=== PATIENT | female | born 1945 | race Caucasian/White ===

== ENCOUNTER 2016-02-22 06:59 | Outpatient (RCR) | payer MEDICARE, MEDICAID ==
[~2016-02-22] VITALS: Ht 154.9 cm; Wt 55.8 kg
[2016-02-22] MEDS ORDERED: NS 550ML IV ONE (07:00)
[2016-02-22] MEDS ORDERED: Methohexital Sodium Syr 100mg/10ml IVP ONE (07:00)
[2016-02-22] MEDS ORDERED: Diazepam 10mg/2ml Inj ONE (07:00)
[2016-02-22] MEDS ORDERED: Succinylcholine 20mg/ml 10ml vial ONE (07:00)
== END 2016-03-20 | disposition home or self-care (01) ==
LOC: ECT 06:59
DX: F31.4 Bipolar disorder, current episode depressed, severe, without psychotic features (principal); Z90.710 Acquired absence of both cervix and uterus; H35.30 Unspecified macular degeneration; E03.9 Hypothyroidism, unspecified
CPT/HCPCS: 90870; J0330; J3360; J7040

== ENCOUNTER 2016-04-02 05:56 | Outpatient (RCR) | payer MEDICARE, MEDICAID ==
[~2016-04-02] VITALS: Ht 154.9 cm; Wt 55.8 kg
[2016-04-02] MEDS ORDERED: NS 550ML IV ONE (05:57)
[2016-04-02] MEDS ORDERED: Methohexital Sodium Syr 100mg/10ml IVP ONE (05:57)
[2016-04-02] MEDS ORDERED: Succinylcholine 20mg/ml 10ml vial ONE ×2 (05:57)
[2016-04-02] MEDS ORDERED: Diazepam 10mg/2ml Inj ONE ×2 (05:57)
[2016-04-02] MEDS ORDERED: Atropine Sulfate 0.4mg/ml inj IVP PRN (20:00)
== END 2016-04-17 | disposition home or self-care (01) ==
LOC: ECT 05:56
DX: F31.4 Bipolar disorder, current episode depressed, severe, without psychotic features (principal)
CPT/HCPCS: 90870; J0330; J3360; J7040

== ENCOUNTER 2016-04-25 08:58 | Outpatient (RCR) | payer MEDICARE ==
[~2016-04-25] VITALS: Ht 154.9 cm; Wt 55.8 kg
[2016-04-25] MEDS ORDERED: Succinylcholine 20mg/ml 10ml vial ONE (08:59)
[2016-04-25] MEDS ORDERED: Methohexital Sodium Syr 100mg/10ml IVP ONE (08:59)
[2016-04-25] MEDS ORDERED: Diazepam 10mg/2ml Inj ONE (08:59)
[2016-04-25] MEDS ORDERED: NS 550ML IV ONE (08:59)
[2016-04-25] MEDS ORDERED: Atropine Sulfate 0.4mg/ml inj IVP PRN (12:09)
== END 2016-05-18 | disposition home or self-care (01) ==
LOC: ECT 08:58
DX: F31.4 Bipolar disorder, current episode depressed, severe, without psychotic features (principal)
CPT/HCPCS: 90870; J0330; J3360; J7040

== ENCOUNTER 2016-05-21 07:22 | Outpatient (RCR) | payer MEDICARE ==
[~2016-05-21] VITALS: Ht 154.9 cm; Wt 55.8 kg
[2016-05-21] MEDS ORDERED: Methohexital Sodium 500mg Vial IVP ONE (07:23)
[2016-05-21] MEDS ORDERED: Methohexital Sodium Syr 100mg/10ml IVP ONE (07:23)
[2016-05-21] MEDS ORDERED: Diazepam 10mg/2ml Inj ONE ×2 (07:23)
[2016-05-21] MEDS ORDERED: NS 550ML IV ONE ×2 (07:23)
[2016-05-21] MEDS ORDERED: Succinylcholine 20mg/ml 10ml vial ONE ×2 (07:23)
[2016-06-11] MEDS ORDERED: Methohexital Sodium Syr 100mg/10ml IVP ONE (06:00)
[2016-06-11] MEDS ORDERED: Atropine Sulfate 0.4mg/ml inj IVP PRN (10:48)
== END 2016-06-17 | disposition home or self-care (01) ==
LOC: ECT 07:22
DX: F31.4 Bipolar disorder, current episode depressed, severe, without psychotic features (principal)
CPT/HCPCS: 90870; J0330; J3360; J7040; J3490

== ENCOUNTER 2016-07-09 06:16 | Outpatient (RCR) | payer MEDICARE ==
[~2016-07-09] VITALS: Ht 154.9 cm; Wt 55.8 kg
[2016-07-09] MEDS ORDERED: Diazepam 10mg/2ml Inj ONE (06:17)
[2016-07-09] MEDS ORDERED: Succinylcholine 20mg/ml 10ml vial ONE (06:17)
[2016-07-09] MEDS ORDERED: Methohexital Sodium Syr 100mg/10ml IVP ONE (06:17)
[2016-07-09] MEDS ORDERED: NS 550ML IV ONE (06:17)
== END 2016-07-18 | disposition home or self-care (01) ==
LOC: ECT 06:16
DX: F31.4 Bipolar disorder, current episode depressed, severe, without psychotic features (principal)
CPT/HCPCS: 90870; J0330; J3360; J7040

== ENCOUNTER 2016-08-06 05:12 | Outpatient (RCR) | payer MEDICARE ==
[~2016-08-06] VITALS: Ht 154.9 cm; Wt 55.8 kg
[2016-08-06] MEDS ORDERED: Succinylcholine 20mg/ml 10ml vial ONE (05:13)
[2016-08-06] MEDS ORDERED: NS 550ML IV ONE (05:13)
[2016-08-06] MEDS ORDERED: Methohexital Sodium Syr 100mg/10ml IVP ONE (05:13)
[2016-08-06] MEDS ORDERED: Diazepam 10mg/2ml Inj ONE (05:13)
== END 2016-08-17 | disposition home or self-care (01) ==
LOC: ECT 05:12
DX: F31.4 Bipolar disorder, current episode depressed, severe, without psychotic features (principal)
CPT/HCPCS: 90870; J0330; J3360; J7040

== ENCOUNTER 2016-09-03 06:38 | Outpatient (RCR) | payer MEDICARE ==
[~2016-09-03] VITALS: Ht 154.9 cm; Wt 55.8 kg
[2016-09-03] MEDS ORDERED: NS 550ML IV ONE (06:39)
[2016-09-03] MEDS ORDERED: Methohexital Sodium Syr 100mg/10ml IVP ONE (06:39)
[2016-09-03] MEDS ORDERED: Diazepam 10mg/2ml Inj ONE (06:39)
[2016-09-03] MEDS ORDERED: Succinylcholine 20mg/ml 10ml vial ONE (06:39)
== END 2016-09-17 | disposition home or self-care (01) ==
LOC: ECT 06:38
DX: F31.4 Bipolar disorder, current episode depressed, severe, without psychotic features (principal)
CPT/HCPCS: 90870; J0330; J3360; J7040

== ENCOUNTER 2016-10-08 07:10 | Outpatient (RCR) | payer MEDICARE ==
[~2016-10-08] VITALS: Ht 154.9 cm; Wt 55.8 kg
[2016-10-08] MEDS ORDERED: Methohexital Sodium Syr 100mg/10ml IVP ONE (07:11)
[2016-10-08] MEDS ORDERED: Succinylcholine 20mg/ml 10ml vial ONE (07:11)
[2016-10-08] MEDS ORDERED: NS 550ML IV ONE (07:11)
== END 2016-10-18 | disposition home or self-care (01) ==
LOC: ECT 07:10
DX: F31.4 Bipolar disorder, current episode depressed, severe, without psychotic features (principal)
CPT/HCPCS: 90870; J0330; J3360; J7040

== ENCOUNTER 2016-11-12 07:07 | Outpatient (RCR) | payer MEDICARE, MEDICAID ==
[~2016-11-12] VITALS: Ht 154.9 cm; Wt 55.8 kg
[2016-11-12] MEDS ORDERED: NS 500ML IV ONE (07:08)
[2016-11-12] MEDS ORDERED: Succinylcholine 20mg/ml 10ml vial ONE (07:08)
[2016-11-12] MEDS ORDERED: Methohexital Sodium Syr 100mg/10ml IVP ONE (07:08)
[2016-11-12] MEDS ORDERED: Sodium Chloride 500ML 500 ML IV ONE (09:18)
== END 2016-11-17 | disposition home or self-care (01) ==
LOC: ECT 07:07
DX: F31.4 Bipolar disorder, current episode depressed, severe, without psychotic features (principal)
CPT/HCPCS: 90870; J0330; J3360; J7040

== ENCOUNTER 2016-11-26 08:28 | Outpatient (RCR) | payer MEDICARE, MEDICAID ==
[~2016-11-26] VITALS: Ht 154.9 cm; Wt 55.8 kg
[2016-11-26] MEDS ORDERED: Succinylcholine 20mg/ml 10ml vial ONE (08:29)
[2016-11-26] MEDS ORDERED: Ketorolac 60mg Inj ONE (08:29)
[2016-11-26] MEDS ORDERED: NS 500ML IV ONE (08:29)
[2016-11-26] MEDS ORDERED: Methohexital Sodium Syr 100mg/10ml IVP ONE (08:29)
[2016-11-26] MEDS ORDERED: Sodium Chloride 500ML 500 ML IV ONE (11:08)
[2016-12-17] MEDS ORDERED: Methohexital Sodium Syr 100mg/10ml IVP ONE (07:00)
[2016-12-17] MEDS ORDERED: NS 500ML IV ONE (07:00)
[2016-12-17] MEDS ORDERED: Ketorolac 60mg Inj ONE (07:00)
[2016-12-17] MEDS ORDERED: Succinylcholine 20mg/ml 10ml vial ONE (07:00)
[2016-12-17 09:05] VITALS: BP 146/75
[2016-12-17] MEDS ORDERED: Sodium Chloride 500ML 500 ML IV ONE (09:23)
[2016-12-17 09:25] VITALS: BP 115/53
[2016-12-17 09:30] VITALS: BP 128/58
[2016-12-17 09:35] VITALS: BP 125/61
[2016-12-17 09:40] VITALS: BP 127/56
== END 2016-12-18 | disposition home or self-care (01) ==
LOC: ECT 08:28
DX: F31.4 Bipolar disorder, current episode depressed, severe, without psychotic features (principal)
CPT/HCPCS: 90870; J0330; J3360; J7040

== ENCOUNTER 2017-01-07 06:57 | Outpatient (RCR) | payer MEDICARE, MEDICAID ==
[~2017-01-07] VITALS: Ht 30.5 cm; Wt 0.5 kg
[2017-01-07] MEDS ORDERED: Succinylcholine 20mg/ml 10ml vial ONE (06:58)
[2017-01-07] MEDS ORDERED: Methohexital Sodium Syr 100mg/10ml IVP ONE (06:58)
[2017-01-07] MEDS ORDERED: Ketorolac 60mg Inj ONE (06:58)
[2017-01-07] MEDS ORDERED: NS 500ML ONE (06:58)
[2017-01-07 08:23] VITALS: BP 141/75
[2017-01-07] MEDS ORDERED: Sodium Chloride 500ML 500 ML IV ONE (08:44)
[2017-01-07 08:45] VITALS: BP 111/59
[2017-01-07 08:50] VITALS: BP 114/56
[2017-01-07 08:55] VITALS: BP 118/56
[2017-01-07 09:00] VITALS: BP 115/58
== END 2017-01-17 | disposition home or self-care (01) ==
LOC: ECT 06:57
DX: F31.4 Bipolar disorder, current episode depressed, severe, without psychotic features (principal)
CPT/HCPCS: 90870; J0330; J3360; J7040

== ENCOUNTER 2017-01-28 08:45 | Outpatient (RCR) | payer MEDICARE, BC ==
[~2017-01-28] VITALS: Ht 154.9 cm; Wt 55.8 kg
[2017-01-28] MEDS ORDERED: Methohexital Sodium Syr 100mg/10ml IVP ONE (08:46)
[2017-01-28] MEDS ORDERED: Succinylcholine 20mg/ml 10ml vial ONE (08:46)
[2017-01-28] MEDS ORDERED: NS 500ML ONE (08:46)
[2017-01-28] MEDS ORDERED: Ketorolac 60mg Inj ONE (08:46)
[2017-01-28 09:26] VITALS: BP 146/77
[2017-01-28] MEDS ORDERED: Sodium Chloride 500ML 500 ML IV ONE (09:56)
[2017-01-28 10:00] VITALS: BP_SYST 117; BP_DIAS 61; BP_DIAS 67
[2017-01-28 10:05] VITALS: BP 121/57
[2017-01-28 10:10] VITALS: BP 123/55
[2017-01-28 10:15] VITALS: BP 122/58
== END 2017-02-17 | disposition home or self-care (01) ==
LOC: ECT 08:45
DX: F31.4 Bipolar disorder, current episode depressed, severe, without psychotic features (principal)
CPT/HCPCS: 90870; J0330; J3360; J7040

== ENCOUNTER 2017-02-20 06:59 | Outpatient (RCR) | payer MEDICARE, MEDICAID ==
[~2017-02-20] VITALS: Ht 154.9 cm; Wt 55.8 kg
[2017-02-20] MEDS ORDERED: Succinylcholine 20mg/ml 10ml vial ONE (07:00)
[2017-02-20] MEDS ORDERED: Ketorolac 60mg Inj ONE (07:00)
[2017-02-20] MEDS ORDERED: NS 500ML ONE (07:00)
[2017-02-20] MEDS ORDERED: Methohexital Sodium Syr 100mg/10ml IVP ONE (07:00)
[2017-02-20 09:05] VITALS: BP 140/76
[2017-02-20] MEDS ORDERED: Sodium Chloride 500ML 500 ML IV ONE (09:23)
[2017-02-20 09:25] VITALS: BP 127/54
[2017-02-20 09:30] VITALS: BP 124/63
[2017-02-20 09:35] VITALS: BP 146/79
[2017-02-20 09:40] VITALS: BP 138/65
[2017-03-18] MEDS ORDERED: Succinylcholine 20mg/ml 10ml vial ONE (06:00)
[2017-03-18] MEDS ORDERED: Methohexital Sodium Syr 100mg/10ml IVP ONE (06:00)
[2017-03-18] MEDS ORDERED: Ketorolac 60mg Inj ONE (06:00)
== END 2017-03-20 | disposition home or self-care (01) ==
LOC: ECT 06:59
DX: F31.4 Bipolar disorder, current episode depressed, severe, without psychotic features (principal); E03.9 Hypothyroidism, unspecified; Z90.710 Acquired absence of both cervix and uterus; H35.30 Unspecified macular degeneration
CPT/HCPCS: 90870; J0330; J3360; J7040

== ENCOUNTER 2017-04-15 06:08 | Outpatient (RCR) | payer MEDICARE ==
[~2017-04-15] VITALS: Ht 30.5 cm; Wt 0.5 kg
[2017-04-15] MEDS ORDERED: Ketorolac 60mg Inj ONE (06:09)
[2017-04-15] MEDS ORDERED: NS 500ML ONE (06:09)
[2017-04-15] MEDS ORDERED: Succinylcholine 20mg/ml 10ml vial ONE (06:09)
[2017-04-15] MEDS ORDERED: Methohexital Sodium Syr 100mg/10ml IVP ONE (06:09)
[2017-04-15 08:18] VITALS: BP 149/78
[2017-04-15] MEDS ORDERED: Sodium Chloride 500ML 500 ML IV ONE (08:33)
[2017-04-15] MEDS ORDERED: Atropine Sulfate 0.4mg/ml inj IVP PRN (08:33)
[2017-04-15 08:35] VITALS: BP 118/58
[2017-04-15 08:40] VITALS: BP 118/55
[2017-04-15 08:45] VITALS: BP 127/57
[2017-04-15 08:50] VITALS: BP 133/60
== END 2017-04-17 | disposition home or self-care (01) ==
LOC: ECT 06:08
DX: F31.4 Bipolar disorder, current episode depressed, severe, without psychotic features (principal); E03.9 Hypothyroidism, unspecified; Z90.710 Acquired absence of both cervix and uterus; H35.30 Unspecified macular degeneration
CPT/HCPCS: 90870; J0330; J3360; J7040

== ENCOUNTER 2017-05-13 05:37 | Outpatient (RCR) | payer MEDICARE ==
[~2017-05-13] VITALS: Ht 154.9 cm; Wt 55.8 kg
[2017-05-13] MEDS ORDERED: NS 500ML ONE (05:38)
[2017-05-13] MEDS ORDERED: Ketorolac 60mg Inj ONE (05:38)
[2017-05-13] MEDS ORDERED: Methohexital Sodium Syr 100mg/10ml IVP ONE (05:38)
[2017-05-13] MEDS ORDERED: Succinylcholine 20mg/ml 10ml vial ONE (05:38)
[2017-05-13 08:48] VITALS: BP 139/87
[2017-05-13] MEDS ORDERED: Sodium Chloride 500ML 500 ML IV ONE (09:18)
[2017-05-13] MEDS ORDERED: Atropine Sulfate 0.4mg/ml inj IVP PRN (09:18)
[2017-05-13 09:20] VITALS: BP 112/54
[2017-05-13 09:25] VITALS: BP 117/55
[2017-05-13 09:30] VITALS: BP 125/60
[2017-05-13 09:35] VITALS: BP 137/71
== END 2017-05-18 | disposition home or self-care (01) ==
LOC: ECT 05:37
DX: F31.4 Bipolar disorder, current episode depressed, severe, without psychotic features (principal)
CPT/HCPCS: 90870; J0330; J3360; J7040

== ENCOUNTER 2017-06-10 08:01 | Outpatient (RCR) | payer MEDICARE ==
[~2017-06-10] VITALS: Ht 33 cm; Wt 0.5 kg
[2017-06-10] MEDS ORDERED: Methohexital Sodium Syr 100mg/10ml IVP ONE (08:02)
[2017-06-10] MEDS ORDERED: NS 500ML ONE (08:02)
[2017-06-10] MEDS ORDERED: Succinylcholine 20mg/ml 10ml vial ONE (08:02)
[2017-06-10] MEDS ORDERED: Ketorolac 60mg Inj ONE (08:02)
[2017-06-10 08:31] VITALS: BP 161/95
[2017-06-10] MEDS ORDERED: Sodium Chloride 500ML 500 ML IV ONE (08:49)
[2017-06-10 08:50] VITALS: BP 128/57
[2017-06-10 08:55] VITALS: BP 127/57
[2017-06-10 09:00] VITALS: BP 132/59
[2017-06-10 09:05] VITALS: BP 145/69
== END 2017-06-17 | disposition home or self-care (01) ==
LOC: ECT 08:01
DX: F31.4 Bipolar disorder, current episode depressed, severe, without psychotic features (principal)
CPT/HCPCS: 90870; J0330; J3360; J7040

== ENCOUNTER 2017-06-21 08:09 | Outpatient (RCR) | payer MEDICARE ==
[~2017-06-21] VITALS: Ht 154.9 cm; Wt 55.8 kg
[2017-06-21] MEDS ORDERED: Methohexital Sodium Syr 100mg/10ml IVP ONE (08:10)
[2017-06-21] MEDS ORDERED: Succinylcholine 20mg/ml 10ml vial ONE (08:10)
[2017-06-21] MEDS ORDERED: Ketorolac 60mg Inj ONE (08:10)
[2017-06-21] MEDS ORDERED: NS 500ML ONE (08:10)
[2017-06-21 10:12] VITALS: BP 157/86
[2017-06-21 10:35] VITALS: BP 125/64
[2017-06-21] MEDS ORDERED: Sodium Chloride 500ML 500 ML IV ONE (10:35)
[2017-06-21 10:40] VITALS: BP 125/60
[2017-06-21 10:45] VITALS: BP 124/60
[2017-06-21 10:50] VITALS: BP 132/60
[2017-07-08] MEDS ORDERED: Ketorolac 60mg Inj ONE (07:00)
[2017-07-08] MEDS ORDERED: Methohexital Sodium Syr 100mg/10ml IVP ONE (07:00)
[2017-07-08] MEDS ORDERED: NS 500ML ONE (07:00)
[2017-07-08] MEDS ORDERED: Succinylcholine 20mg/ml 10ml vial ONE (07:00)
[2017-07-08 08:00] VITALS: BP 145/78
[2017-07-08] MEDS ORDERED: Sodium Chloride 500ML 500 ML IV ONE (08:27)
[2017-07-08 08:30] VITALS: BP 125/53
[2017-07-08 08:35] VITALS: BP 114/54
[2017-07-08 08:40] VITALS: BP 114/56
[2017-07-08 08:45] VITALS: BP 122/54
[2017-07-08 09:08] VITALS: BP 129/64
== END 2017-07-18 | disposition home or self-care (01) ==
LOC: ECT 08:09
DX: F31.4 Bipolar disorder, current episode depressed, severe, without psychotic features (principal)
CPT/HCPCS: 90870; J0330; J3360; J7040

== ENCOUNTER 2017-08-14 06:06 | Outpatient (RCR) | payer MEDICARE ==
[~2017-08-14] VITALS: Ht 154.9 cm; Wt 55.8 kg
[2017-08-14] MEDS ORDERED: Ketorolac 60mg Inj ONE (06:07)
[2017-08-14] MEDS ORDERED: NS 500ML ONE (06:07)
[2017-08-14] MEDS ORDERED: Methohexital Sodium Syr 100mg/10ml IVP ONE (06:07)
[2017-08-14] MEDS ORDERED: Succinylcholine 20mg/ml 10ml vial ONE (06:07)
[2017-08-14 08:23] VITALS: BP 147/88
[2017-08-14 08:45] VITALS: BP 125/61
[2017-08-14] MEDS ORDERED: Sodium Chloride 500ML 500 ML IV ONE (08:45)
[2017-08-14 08:50] VITALS: BP 128/61
[2017-08-14 08:55] VITALS: BP 129/64
[2017-08-14 09:00] VITALS: BP 129/61
== END 2017-08-17 | disposition home or self-care (01) ==
LOC: ECT 06:06
DX: F31.4 Bipolar disorder, current episode depressed, severe, without psychotic features (principal)
CPT/HCPCS: 90870; J0330; J3360; J7040

== ENCOUNTER 2017-09-16 05:41 | Outpatient (RCR) | payer MEDICARE ==
[~2017-09-16] VITALS: Ht 30.5 cm; Wt 0.5 kg
[2017-09-16] MEDS ORDERED: Ketorolac 60mg Inj ONE (05:42)
[2017-09-16] MEDS ORDERED: Succinylcholine 20mg/ml 10ml vial ONE (05:42)
[2017-09-16] MEDS ORDERED: Methohexital Sodium Syr 100mg/10ml IVP ONE (05:42)
[2017-09-16] MEDS ORDERED: NS 500ML ONE (05:42)
[2017-09-16 07:45] VITALS: BP 156/83
[2017-09-16] MEDS ORDERED: Sodium Chloride 500ML 500 ML IV ONE (08:03)
[2017-09-16 08:05] VITALS: BP 130/60
[2017-09-16 08:10] VITALS: BP 123/54
[2017-09-16 08:15] VITALS: BP 120/49
[2017-09-16 08:20] VITALS: BP 122/53
== END 2017-09-17 | disposition home or self-care (01) ==
LOC: ECT 05:41
DX: F31.4 Bipolar disorder, current episode depressed, severe, without psychotic features (principal)
CPT/HCPCS: 90870; J0330; J3360; J7040

== ENCOUNTER 2017-10-14 04:41 | Outpatient (RCR) | payer MEDICARE ==
[~2017-10-14] VITALS: Ht 154.9 cm; Wt 55.8 kg
[2017-10-14] MEDS ORDERED: Ketorolac 60mg Inj IM ONE (04:42)
[2017-10-14] MEDS ORDERED: Succinylcholine 20mg/ml 10ml vial ONE (04:42)
[2017-10-14] MEDS ORDERED: NS 500ML ONE (04:42)
[2017-10-14] MEDS ORDERED: Methohexital Sodium Syr 100mg/10ml IVP ONE (04:42)
[2017-10-14 08:23] VITALS: BP 164/70
[2017-10-14] MEDS ORDERED: Sodium Chloride 500ML 500 ML IV ONE (08:39)
[2017-10-14 08:40] VITALS: BP 120/61
[2017-10-14 08:45] VITALS: BP 119/56
[2017-10-14 08:50] VITALS: BP 120/55
[2017-10-14 08:55] VITALS: BP 124/55
== END 2017-10-18 | disposition home or self-care (01) ==
LOC: ECT 04:41
DX: F31.4 Bipolar disorder, current episode depressed, severe, without psychotic features (principal); E03.9 Hypothyroidism, unspecified; J45.909 Unspecified asthma, uncomplicated
CPT/HCPCS: 90870; J0330; J3360; J7040

== ENCOUNTER 2017-11-18 04:44 | Outpatient (RCR) | payer MEDICARE ==
[~2017-11-18] VITALS: Ht 154.9 cm; Wt 55.8 kg
[2017-11-18] MEDS ORDERED: Methohexital Sodium Syr 100mg/10ml IVP ONE (04:45)
[2017-11-18] MEDS ORDERED: NS 500ML ONE (04:45)
[2017-11-18] MEDS ORDERED: Ketorolac 60mg Inj IM ONE (04:45)
[2017-11-18] MEDS ORDERED: Succinylcholine 20mg/ml 10ml vial ONE (04:45)
[2017-11-18 08:39] VITALS: BP 152/74
[2017-11-18] MEDS ORDERED: Sodium Chloride 500ML 500 ML IV ONE (09:01)
[2017-11-18 09:05] VITALS: BP 122/59
[2017-11-18 09:10] VITALS: BP 137/60
[2017-11-18 09:15] VITALS: BP 139/65
[2017-11-18 09:20] VITALS: BP 131/60
[2017-12-16] MEDS ORDERED: NS 500ML ONE (07:00)
[2017-12-16] MEDS ORDERED: Methohexital Sodium Syr 100mg/10ml IVP ONE (07:00)
[2017-12-16] MEDS ORDERED: Ketorolac 60mg Inj IM ONE (07:00)
[2017-12-16] MEDS ORDERED: Succinylcholine 20mg/ml 10ml vial ONE (07:00)
[2017-12-16 08:49] VITALS: BP 130/80
[2017-12-16] MEDS ORDERED: Sodium Chloride 500ML 500 ML IV ONE (09:13)
[2017-12-16] MEDS ORDERED: Atropine Sulfate 0.4mg/ml inj IVP PRN (09:13)
[2017-12-16 09:15] VITALS: BP 112/60
[2017-12-16 09:20] VITALS: BP 118/58
[2017-12-16 09:25] VITALS: BP 115/56
[2017-12-16 09:30] VITALS: BP 120/53
== END 2017-12-18 | disposition home or self-care (01) ==
LOC: ECT 04:44
DX: F31.4 Bipolar disorder, current episode depressed, severe, without psychotic features (principal)
CPT/HCPCS: 90870; J0330; J3360; J7040

== ENCOUNTER 2018-01-13 06:26 | Outpatient (RCR) | payer MEDICARE ==
[~2018-01-13] VITALS: Ht 154.9 cm; Wt 55.8 kg
[2018-01-13] MEDS ORDERED: Ketorolac 60mg Inj IM ONE (06:27)
[2018-01-13] MEDS ORDERED: NS 500ML ONE (06:27)
[2018-01-13] MEDS ORDERED: Succinylcholine 20mg/ml 10ml vial ONE (06:27)
[2018-01-13] MEDS ORDERED: Methohexital Sodium Syr 100mg/10ml IVP ONE (06:27)
[2018-01-13] MEDS ORDERED: Sodium Chloride 500ML 500 ML IV ONE (08:30)
[2018-01-13 08:34] VITALS: BP 141/80
[2018-01-13 08:55] VITALS: BP 141/80
[2018-01-13 09:00] VITALS: BP 116/61
[2018-01-13 09:05] VITALS: BP 112/81
[2018-01-13 09:10] VITALS: BP 139/75
== END 2018-01-17 | disposition home or self-care (01) ==
LOC: ECT 06:26
DX: F31.4 Bipolar disorder, current episode depressed, severe, without psychotic features (principal)
CPT/HCPCS: 90870; J0330; J3360; J7040

== ENCOUNTER 2018-02-03 07:04 | Outpatient (RCR) | payer MEDICARE ==
[~2018-02-03] VITALS: Ht 154.9 cm; Wt 55.8 kg
[2018-02-05] MEDS ORDERED: Ketorolac 60mg Inj IM ONE (07:05)
[2018-02-05] MEDS ORDERED: NS 500ML ONE (07:05)
[2018-02-05] MEDS ORDERED: Succinylcholine 20mg/ml 10ml vial ONE (07:05)
[2018-02-05] MEDS ORDERED: Methohexital Sodium Syr 100mg/10ml IVP ONE (07:05)
[2018-02-05 09:34] VITALS: BP 158/84
[2018-02-05] MEDS ORDERED: Sodium Chloride 500ML 500 ML IV ONE (09:52)
[2018-02-05 09:55] VITALS: BP 114/63
[2018-02-05 10:00] VITALS: BP 125/57
[2018-02-05 10:05] VITALS: BP 122/59
[2018-02-05 10:10] VITALS: BP 123/60
== END 2018-02-17 | disposition home or self-care (01) ==
LOC: ECT 07:04
DX: F31.4 Bipolar disorder, current episode depressed, severe, without psychotic features (principal)
CPT/HCPCS: 90870; J0330; J3360; J7040

== ENCOUNTER 2018-03-03 08:43 | Outpatient (RCR) | payer MEDICARE, MEDICAID ==
[~2018-03-03] VITALS: Ht 30.5 cm; Wt 0.5 kg
[2018-03-03] MEDS ORDERED: Methohexital Sodium Syr 100mg/10ml IVP ONE (08:44)
[2018-03-03] MEDS ORDERED: NS 500ML ONE (08:44)
[2018-03-03] MEDS ORDERED: Ketorolac 60mg Inj IM ONE (08:44)
[2018-03-03] MEDS ORDERED: Succinylcholine 20mg/ml 10ml vial ONE (08:44)
[2018-03-10 08:40] VITALS: BP_SYST 117; BP_SYST 138; BP_DIAS 57; BP_DIAS 74
[2018-03-10 08:45] VITALS: BP 113/54
[2018-03-10 08:50] VITALS: BP 112/56
[2018-03-10 08:55] VITALS: BP 127/60
== END 2018-03-20 | disposition home or self-care (01) ==
LOC: ECT 08:43
DX: F31.4 Bipolar disorder, current episode depressed, severe, without psychotic features (principal); E03.9 Hypothyroidism, unspecified; Z90.710 Acquired absence of both cervix and uterus; H35.30 Unspecified macular degeneration
CPT/HCPCS: 90870; J0330; J3360; J7040

== ENCOUNTER 2018-04-07 06:22 | Outpatient (RCR) | payer MEDICARE ==
[~2018-04-07] VITALS: Ht 30.5 cm; Wt 0.5 kg
[2018-04-14] MEDS ORDERED: Succinylcholine 20mg/ml 10ml vial ONE (06:00)
[2018-04-14] MEDS ORDERED: Ketorolac 60mg Inj IM ONE (06:00)
[2018-04-14] MEDS ORDERED: NS 500ML ONE (06:00)
[2018-04-14] MEDS ORDERED: Methohexital Sodium Syr 100mg/10ml IVP ONE (06:00)
[2018-04-14 08:30] VITALS: BP 154/86
[2018-04-14 08:50] VITALS: BP 109/52
[2018-04-14 08:55] VITALS: BP 110/53
[2018-04-14 09:00] VITALS: BP 112/53
[2018-04-14 09:05] VITALS: BP 116/62
== END 2018-04-17 | disposition home or self-care (01) ==
LOC: ECT 06:22
DX: F31.4 Bipolar disorder, current episode depressed, severe, without psychotic features (principal)
CPT/HCPCS: 90870; J0330; J3360; J7040

== ENCOUNTER 2018-05-14 06:20 | Outpatient (RCR) | payer MEDICARE ==
[~2018-05-14] VITALS: Ht 30.5 cm; Wt 0.5 kg
[2018-05-14] MEDS ORDERED: NS 500ML ONE (07:00)
[2018-05-14] MEDS ORDERED: Ketorolac 60mg Inj IM ONE (07:00)
[2018-05-14] MEDS ORDERED: Methohexital Sodium Syr 100mg/10ml IVP ONE (07:00)
[2018-05-14] MEDS ORDERED: Succinylcholine 20mg/ml 10ml vial ONE (07:00)
[2018-05-14 08:16] VITALS: BP 164/80
[2018-05-14 08:30] VITALS: BP 116/71
[2018-05-14 08:35] VITALS: BP 119/55
[2018-05-14 08:40] VITALS: BP 117/57
[2018-05-14 08:45] VITALS: BP 122/59
== END 2018-05-18 | disposition home or self-care (01) ==
LOC: ECT 06:20
DX: F31.4 Bipolar disorder, current episode depressed, severe, without psychotic features (principal)
CPT/HCPCS: 90870; J0330; J3360; J7040

== ENCOUNTER 2018-06-16 04:41 | Outpatient (RCR) | payer MEDICARE ==
[~2018-06-16] VITALS: Ht 154.9 cm; Wt 55.8 kg
[2018-06-16] MEDS ORDERED: Methohexital Sodium Syr 100mg/10ml IVP ONE (04:42)
[2018-06-16] MEDS ORDERED: NS 500ML ONE (04:42)
[2018-06-16] MEDS ORDERED: Ketorolac 30mg Inj ONE (04:42)
[2018-06-16] MEDS ORDERED: Succinylcholine 20mg/ml 10ml vial ONE (04:42)
[2018-06-16 08:28] VITALS: BP 156/87
[2018-06-16 08:46] VITALS: BP 116/53
[2018-06-16 08:51] VITALS: BP 123/65
[2018-06-16 08:56] VITALS: BP 139/62
[2018-06-16 09:01] VITALS: BP 133/70
== END 2018-06-17 | disposition home or self-care (01) ==
LOC: ECT 04:41
DX: F31.4 Bipolar disorder, current episode depressed, severe, without psychotic features (principal)
CPT/HCPCS: 90870; J0330; J1885; J3360; J7040

== ENCOUNTER 2018-07-16 04:32 | Outpatient (RCR) | payer MEDICARE ==
[~2018-07-16] VITALS: Ht 30.5 cm; Wt 0.5 kg
[2018-07-16] MEDS ORDERED: Succinylcholine 20mg/ml 10ml vial ONE (04:33)
[2018-07-16] MEDS ORDERED: Methohexital Sodium Syr 100mg/10ml IVP ONE (04:33)
[2018-07-16] MEDS ORDERED: Ketorolac 60mg Inj IM ONE (04:33)
[2018-07-16] MEDS ORDERED: NS 500ML ONE (04:33)
[2018-07-16 08:19] VITALS: BP 154/78
[2018-07-16 08:35] VITALS: BP 108/56
[2018-07-16 08:40] VITALS: BP 118/61
[2018-07-16 08:45] VITALS: BP 131/60
[2018-07-16 08:50] VITALS: BP 115/58
== END 2018-07-18 | disposition home or self-care (01) ==
LOC: ECT 04:32
DX: F31.4 Bipolar disorder, current episode depressed, severe, without psychotic features (principal)
CPT/HCPCS: 90870; J0330; J3360; J7040

== ENCOUNTER 2018-08-18 07:02 | Outpatient (RCR) | payer MEDICARE ==
[~2018-08-18] VITALS: Ht 30.5 cm; Wt 0.5 kg
[2018-08-18] MEDS ORDERED: Ketorolac 60mg Inj IM ONE (07:03)
[2018-08-18] MEDS ORDERED: Succinylcholine 20mg/ml 10ml vial ONE (07:03)
[2018-08-18] MEDS ORDERED: Methohexital Sodium Syr 100mg/10ml IVP ONE (07:03)
[2018-08-18] MEDS ORDERED: NS 500ML ONE (07:03)
[2018-08-18 07:54] VITALS: BP 161/66
[2018-08-18 08:06] VITALS: BP 116/64
[2018-08-18 08:11] VITALS: BP 117/56
[2018-08-18 08:16] VITALS: BP 117/58
[2018-08-18 08:21] VITALS: BP 124/72
[2018-09-10] MEDS ORDERED: Succinylcholine 20mg/ml 10ml vial ONE (09:00)
[2018-09-10] MEDS ORDERED: Methohexital Sodium Syr 100mg/10ml IVP ONE (09:00)
[2018-09-10] MEDS ORDERED: Ketorolac 60mg Inj IM ONE (09:00)
[2018-09-10] MEDS ORDERED: NS 500ML ONE (09:00)
[2018-09-10 10:13] VITALS: BP 162/77
[2018-09-10 10:35] VITALS: BP 160/58
[2018-09-10 10:40] VITALS: BP 126/60
[2018-09-10 10:45] VITALS: BP 120/57
[2018-09-10 10:50] VITALS: BP 119/59
== END 2018-09-17 | disposition home or self-care (01) ==
LOC: ECT 07:02
DX: F31.4 Bipolar disorder, current episode depressed, severe, without psychotic features (principal)
CPT/HCPCS: 90870; J0330; J3360; J7040

== ENCOUNTER 2018-10-13 05:11 | Outpatient (RCR) | payer MEDICARE ==
[~2018-10-13] VITALS: Ht 154.9 cm; Wt 55.8 kg
[2018-10-13] MEDS ORDERED: Ketorolac 60mg Inj IM ONE (05:12)
[2018-10-13] MEDS ORDERED: NS 500ML ONE (05:12)
[2018-10-13] MEDS ORDERED: Methohexital Sodium Syr 100mg/10ml IVP ONE (05:12)
[2018-10-13] MEDS ORDERED: Succinylcholine 20mg/ml 10ml vial ONE (05:12)
[2018-10-13 07:59] VITALS: BP 152/76
[2018-10-13] MEDS ORDERED: Atropine Sulfate 0.4mg/ml inj IVP PRN (08:29)
[2018-10-13 08:30] VITALS: BP 113/55
[2018-10-13 08:35] VITALS: BP 109/57
[2018-10-13 08:40] VITALS: BP 115/55
[2018-10-13 08:45] VITALS: BP 120/61
== END 2018-10-18 | disposition home or self-care (01) ==
LOC: ECT 05:11
DX: F31.4 Bipolar disorder, current episode depressed, severe, without psychotic features (principal)
CPT/HCPCS: 90870; J0330; J3360; J7040

== ENCOUNTER 2018-10-29 05:09 | Outpatient (RCR) | payer MEDICARE ==
[~2018-10-29] VITALS: Ht 154.9 cm; Wt 55.8 kg
[2018-10-29] MEDS ORDERED: Succinylcholine 20mg/ml 10ml vial ONE (05:10)
[2018-10-29] MEDS ORDERED: Methohexital Sodium Syr 100mg/10ml IVP ONE (05:10)
[2018-10-29] MEDS ORDERED: Ketorolac 60mg Inj IM ONE (05:10)
[2018-10-29] MEDS ORDERED: NS 500ML ONE (05:10)
[2018-10-29 08:37] VITALS: BP 153/71
[2018-10-29 08:57] VITALS: BP 119/55
[2018-10-29 09:02] VITALS: BP 124/63
[2018-10-29 09:07] VITALS: BP 132/65
[2018-10-29 09:12] VITALS: BP 153/61
== END 2018-11-17 | disposition home or self-care (01) ==
LOC: ECT 05:09
DX: F31.4 Bipolar disorder, current episode depressed, severe, without psychotic features (principal)
CPT/HCPCS: 90870; J0330; J3360; J7040

== ENCOUNTER 2018-11-24 04:44 | Outpatient (RCR) | payer MEDICARE ==
[~2018-11-24] VITALS: Ht 154.9 cm; Wt 55.8 kg
[2018-11-24] MEDS ORDERED: NS 500ML ONE (04:45)
[2018-11-24] MEDS ORDERED: Succinylcholine 20mg/ml 10ml vial ONE (04:45)
[2018-11-24] MEDS ORDERED: Ketorolac 60mg Inj IM ONE (04:45)
[2018-11-24] MEDS ORDERED: Methohexital Sodium Syr 100mg/10ml IVP ONE (04:45)
[2018-11-24 08:11] VITALS: BP 153/79
[2018-11-24 08:30] VITALS: BP 126/60
[2018-11-24 08:35] VITALS: BP 131/52
[2018-11-24 08:40] VITALS: BP 127/58
[2018-11-24 08:45] VITALS: BP 129/62
== END 2018-12-18 | disposition home or self-care (01) ==
LOC: ECT 04:44
DX: F31.4 Bipolar disorder, current episode depressed, severe, without psychotic features (principal)
CPT/HCPCS: 90870; J0330; J3360; J7040

== ENCOUNTER 2018-12-24 05:42 | Outpatient (RCR) | payer MEDICARE ==
[~2018-12-24] VITALS: Ht 154.9 cm; Wt 55.8 kg
[2018-12-24] MEDS ORDERED: Succinylcholine 20mg/ml 10ml vial ONE (05:43)
[2018-12-24] MEDS ORDERED: Ketorolac 60mg Inj IM ONE (05:43)
[2018-12-24] MEDS ORDERED: Methohexital Sodium Syr 100mg/10ml IVP ONE (05:43)
[2018-12-24] MEDS ORDERED: NS 500ML ONE (05:43)
[2018-12-24 10:14] VITALS: BP 140/72
[2018-12-24 10:30] VITALS: BP 118/55
[2018-12-24 10:35] VITALS: BP 117/64
[2018-12-24 10:40] VITALS: BP 120/64
[2018-12-24 10:45] VITALS: BP 120/59
[2019-01-14 08:21] VITALS: BP 150/74
[2019-01-14 08:35] VITALS: BP 117/51
[2019-01-14 08:40] VITALS: BP 121/56
[2019-01-14 08:45] VITALS: BP 119/49
[2019-01-14 08:50] VITALS: BP 123/40
== END 2019-01-17 | disposition home or self-care (01) ==
LOC: ECT 05:42
DX: F31.4 Bipolar disorder, current episode depressed, severe, without psychotic features (principal)
CPT/HCPCS: 90870; J0330; J3360; J7040

== ENCOUNTER 2019-02-16 05:14 | Outpatient (RCR) | payer MEDICARE ==
[~2019-02-16] VITALS: Ht 30.5 cm; Wt 0.5 kg
[2019-02-16] MEDS ORDERED: Methohexital Sodium Syr 100mg/10ml IVP ONE (05:15)
[2019-02-16] MEDS ORDERED: Succinylcholine 20mg/ml 10ml vial ONE (05:15)
[2019-02-16] MEDS ORDERED: NS 500ML ONE (05:15)
[2019-02-16] MEDS ORDERED: Ketorolac 60mg Inj IM ONE (05:15)
[2019-02-16 07:46] VITALS: BP 165/85
[2019-02-16 08:01] VITALS: BP 115/60
[2019-02-16 08:06] VITALS: BP 112/55
[2019-02-16 08:11] VITALS: BP 118/54
[2019-02-16 08:16] VITALS: BP 122/57
== END 2019-02-17 | disposition home or self-care (01) ==
LOC: ECT 05:14
DX: F31.4 Bipolar disorder, current episode depressed, severe, without psychotic features (principal)
CPT/HCPCS: 90870

== ENCOUNTER 2019-04-08 05:06 | Outpatient (RCR) | payer MEDICARE ==
[~2019-04-08] VITALS: Ht 154.9 cm; Wt 55.8 kg
[2019-04-08] MEDS ORDERED: Methohexital Sodium Syr 100mg/10ml IVP ONE (06:00)
[2019-04-08] MEDS ORDERED: Succinylcholine 20mg/ml 10ml vial ONE (06:00)
[2019-04-08] MEDS ORDERED: NS 500ML ONE (06:00)
[2019-04-08] MEDS ORDERED: Ketorolac 30mg Inj ONE (06:00)
[2019-04-08 08:34] VITALS: BP 177/87
[2019-04-08 08:54] VITALS: BP 131/58
[2019-04-08 08:59] VITALS: BP 141/76
[2019-04-08 09:04] VITALS: BP 135/57
[2019-04-08 09:09] VITALS: BP 129/60
== END 2019-04-18 | disposition home or self-care (01) ==
LOC: ECT 05:06
DX: F31.4 Bipolar disorder, current episode depressed, severe, without psychotic features (principal)
CPT/HCPCS: 90870; J0330; J1885; J3360; J7040

== ENCOUNTER 2019-04-22 08:28 | Outpatient (RCR) | payer MEDICARE ==
[~2019-04-22] VITALS: Ht 154.9 cm; Wt 55.8 kg
[~2019-04-22 08:28] MED LIST: Ketorolac 30mg Inj ONE; Methohexital Sodium Syr 100mg/10ml IVP ONE; NS 500ML ONE; Succinylcholine 20mg/ml 10ml vial ONE
[2019-04-22 09:40] VITALS: BP 157/78
[2019-04-22 10:00] VITALS: BP 117/53
[2019-04-22 10:05] VITALS: BP 114/52
[2019-04-22 10:10] VITALS: BP 113/51
[2019-04-22 10:15] VITALS: BP 114/50
[2019-05-04 08:40] VITALS: BP 144/74
[2019-05-04 08:58] VITALS: BP 140/54
[2019-05-04] MEDS ORDERED: Ketorolac 60mg Inj IM ONE (09:00)
[2019-05-04] MEDS ORDERED: NS 500ML ONE (09:00)
[2019-05-04] MEDS ORDERED: Methohexital Sodium Syr 100mg/10ml IVP ONE (09:00)
[2019-05-04] MEDS ORDERED: Succinylcholine 20mg/ml 10ml vial ONE (09:00)
[2019-05-04 09:03] VITALS: BP 131/59
[2019-05-04 09:08] VITALS: BP 131/53
[2019-05-04 09:13] VITALS: BP 123/50
== END 2019-05-19 | disposition home or self-care (01) ==
LOC: ECT 08:28
DX: F31.4 Bipolar disorder, current episode depressed, severe, without psychotic features (principal)
CPT/HCPCS: 90870; J0330; J1885; J3360; J7040

== ENCOUNTER 2019-06-01 05:35 | Outpatient (RCR) | payer MEDICARE ==
[~2019-06-01] VITALS: Ht 154.9 cm; Wt 55.8 kg
[2019-06-01] MEDS ORDERED: Succinylcholine 20mg/ml 10ml vial ONE (05:36)
[2019-06-01] MEDS ORDERED: NS 500ML ONE (05:36)
[2019-06-01] MEDS ORDERED: Methohexital Sodium Syr 100mg/10ml IVP ONE (05:36)
[2019-06-01] MEDS ORDERED: Ketorolac 30mg Inj ONE (05:36)
[2019-06-01 08:17] VITALS: BP 159/81
[2019-06-01 08:34] VITALS: BP 124/58
[2019-06-01] MEDS ORDERED: Lidocaine 2% 100mg/5ml Carp IV PRN (08:34)
[2019-06-01] MEDS ORDERED: Atropine Sulfate 0.4mg/ml inj IVP PRN (08:34)
[2019-06-01 08:39] VITALS: BP 116/45
[2019-06-01 08:44] VITALS: BP 105/46
[2019-06-01 08:49] VITALS: BP 108/46
== END 2019-06-18 | disposition home or self-care (01) ==
LOC: ECT 05:35
DX: F31.4 Bipolar disorder, current episode depressed, severe, without psychotic features (principal)
CPT/HCPCS: 90870; J0330; J1885; J3360; J7040

== ENCOUNTER 2019-06-29 06:34 | Outpatient (RCR) | payer MEDICARE ==
[~2019-06-29] VITALS: Ht 154.9 cm; Wt 55.8 kg
[2019-06-29] MEDS ORDERED: Methohexital Sodium Syr 100mg/10ml IVP ONE (06:35)
[2019-06-29] MEDS ORDERED: Succinylcholine 20mg/ml 10ml vial ONE (06:35)
[2019-06-29] MEDS ORDERED: Ketorolac 60mg Inj IM ONE (06:35)
[2019-06-29] MEDS ORDERED: NS 500ML ONE (06:35)
[2019-06-29 08:19] VITALS: BP 154/81
[2019-06-29 08:34] VITALS: BP 136/62
[2019-06-29 08:39] VITALS: BP 125/57
[2019-06-29 08:44] VITALS: BP 116/53
[2019-06-29 08:49] VITALS: BP 118/54
== END 2019-07-19 | disposition home or self-care (01) ==
LOC: ECT 06:34
DX: F31.4 Bipolar disorder, current episode depressed, severe, without psychotic features (principal)
CPT/HCPCS: 90870; J0330; J3360; J7040

== ENCOUNTER 2019-07-29 05:15 | Outpatient (RCR) | payer MEDICARE ==
[~2019-07-29] VITALS: Ht 154.9 cm; Wt 55.8 kg
[2019-07-29] MEDS ORDERED: NS 500ML ONE (06:00)
[2019-07-29] MEDS ORDERED: Methohexital Sodium Syr 100mg/10ml IVP ONE (06:00)
[2019-07-29] MEDS ORDERED: Succinylcholine 20mg/ml 10ml vial ONE (06:00)
[2019-07-29] MEDS ORDERED: Ketorolac 30mg Inj ONE (06:00)
[2019-07-29 08:18] VITALS: BP 156/72
[2019-07-29] MEDS ORDERED: Lidocaine 2% 100mg/5ml Carp IV PRN (08:39)
[2019-07-29] MEDS ORDERED: Atropine Sulfate 0.4mg/ml inj IVP PRN (08:39)
[2019-07-29 08:40] VITALS: BP 102/41
[2019-07-29 08:45] VITALS: BP 100/41
[2019-07-29 08:50] VITALS: BP 95/38
[2019-07-29 08:55] VITALS: BP 99/32
== END 2019-08-18 | disposition home or self-care (01) ==
LOC: ECT 05:15
DX: F31.4 Bipolar disorder, current episode depressed, severe, without psychotic features (principal)
CPT/HCPCS: 90870; J0330; J1885; J3360; J7040

== ENCOUNTER 2019-08-31 05:45 | Outpatient (RCR) | payer MEDICARE ==
[~2019-08-31] VITALS: Ht 154.9 cm; Wt 55.8 kg
[2019-08-31] MEDS ORDERED: Methohexital Sodium Syr 100mg/10ml IVP ONE (05:46)
[2019-08-31] MEDS ORDERED: Ketorolac 60mg Inj IM ONE (05:46)
[2019-08-31] MEDS ORDERED: Succinylcholine 20mg/ml 10ml vial ONE (05:46)
[2019-08-31] MEDS ORDERED: NS 500ML ONE (05:46)
[2019-08-31 08:25] VITALS: BP 149/77
[2019-08-31] MEDS ORDERED: Atropine Sulfate 0.4mg/ml inj IVP PRN (08:49)
[2019-08-31] MEDS ORDERED: Lidocaine 2% 100mg/5ml Carp IV PRN (08:49)
[2019-08-31 08:50] VITALS: BP 120/59
[2019-08-31 08:55] VITALS: BP 113/55
[2019-08-31 09:00] VITALS: BP 113/57
[2019-08-31 09:05] VITALS: BP 116/57
== END 2019-09-18 | disposition home or self-care (01) ==
LOC: ECT 05:45
DX: F31.4 Bipolar disorder, current episode depressed, severe, without psychotic features (principal)
CPT/HCPCS: 90870; J0330; J3360; J7040

== ENCOUNTER 2019-10-05 06:02 | Outpatient (RCR) | payer MEDICARE ==
[2019-10-05] VITALS (7 sets, daily range): BP systolic 119–154; BP diastolic 43–72
[~2019-10-05] VITALS: Ht 30.5 cm; Wt 0.5 kg
[2019-10-05] MEDS ORDERED: Methohexital Sodium Syr 100mg/10ml IVP ONE (06:03)
[2019-10-05] MEDS ORDERED: NS 500ML ONE (06:03)
[2019-10-05] MEDS ORDERED: Ketorolac 60mg Inj IM ONE (06:03)
[2019-10-05] MEDS ORDERED: Succinylcholine 20mg/ml 10ml vial ONE (06:03)
[2019-10-05] MEDS ORDERED: Atropine Sulfate 0.4mg/ml inj IVP PRN (09:04)
== END 2019-10-19 | disposition home or self-care (01) ==
LOC: ECT 06:02
DX: F31.4 Bipolar disorder, current episode depressed, severe, without psychotic features (principal)
CPT/HCPCS: 90870; J0330; J3360; J7040

== ENCOUNTER 2019-11-09 04:46 | Outpatient (RCR) | payer MEDICARE, BC ==
[~2019-11-09] VITALS: Ht 154.9 cm; Wt 55.8 kg
[2019-11-09] VITALS (7 sets, daily range): BP systolic 105–149; BP diastolic 40–71
[2019-11-09] MEDS ORDERED: Ketorolac 30mg Inj ONE (06:00)
[2019-11-09] MEDS ORDERED: Succinylcholine 20mg/ml 10ml vial ONE (06:00)
[2019-11-09] MEDS ORDERED: NS 500ML ONE (06:00)
[2019-11-09] MEDS ORDERED: Methohexita Syr 100mg/10ml IVP ONE (06:00)
[2019-11-09] MEDS ORDERED: Atropine Sulfate 0.4mg/ml inj IVP PRN (08:59)
== END 2019-11-18 | disposition home or self-care (01) ==
LOC: ECT 04:46
DX: F31.4 Bipolar disorder, current episode depressed, severe, without psychotic features (principal)
CPT/HCPCS: 90870; J0330; J1885; J3360; J7040

== ENCOUNTER 2019-12-07 04:51 | Outpatient (RCR) | payer MEDICARE ==
[2019-12-07] VITALS (7 sets, daily range): BP systolic 110–149; BP diastolic 53–77
[~2019-12-07] VITALS: Ht 30.5 cm; Wt 0.5 kg
[2019-12-07] MEDS ORDERED: Succinylcholine 20mg/ml 10ml vial ONE (04:52)
[2019-12-07] MEDS ORDERED: Ketorolac 60mg Inj IM ONE (04:52)
[2019-12-07] MEDS ORDERED: NS 500ML ONE (04:52)
[2019-12-07] MEDS ORDERED: Methohexital Sodium Syr 100mg/10ml IVP ONE (04:52)
== END 2019-12-19 | disposition home or self-care (01) ==
LOC: ECT 04:51
DX: F31.4 Bipolar disorder, current episode depressed, severe, without psychotic features (principal)
CPT/HCPCS: 90870; J0330; J3360; J7040

== ENCOUNTER 2020-01-04 04:33 | Outpatient (RCR) | payer MEDICARE, BC ==
[~2020-01-04] VITALS: Ht 154.9 cm; Wt 55.8 kg
[2020-01-04] VITALS (7 sets, daily range): BP systolic 114–155; BP diastolic 49–80
[2020-01-04] MEDS ORDERED: Ketorolac 30mg Inj ONE (06:00)
[2020-01-04] MEDS ORDERED: Succinylcholine 20mg/ml 10ml vial ONE (06:00)
[2020-01-04] MEDS ORDERED: NS 500ML ONE (06:00)
[2020-01-04] MEDS ORDERED: Methohexita Syr 100mg/10ml IVP ONE (06:00)
== END 2020-01-18 | disposition home or self-care (01) ==
LOC: ECT 04:33
DX: F31.4 Bipolar disorder, current episode depressed, severe, without psychotic features (principal)
CPT/HCPCS: 90870; J0330; J1885; J3360; J7040

== ENCOUNTER 2020-02-01 05:27 | Outpatient (RCR) | payer MEDICARE ==
[~2020-02-01] VITALS: Ht 30.5 cm; Wt 0.5 kg
[2020-02-01] VITALS (7 sets, daily range): BP systolic 111–158; BP diastolic 50–71
[2020-02-01] MEDS ORDERED: NS 500ML ONE (05:28)
[2020-02-01] MEDS ORDERED: Methohexita Syr 100mg/10ml IVP ONE (05:28)
[2020-02-01] MEDS ORDERED: Succinylcholine 20mg/ml 10ml vial ONE (05:28)
[2020-02-01] MEDS ORDERED: Ketorolac 60mg Inj IM ONE (05:28)
== END 2020-02-18 | disposition home or self-care (01) ==
LOC: ECT 05:27
DX: F31.4 Bipolar disorder, current episode depressed, severe, without psychotic features (principal)
CPT/HCPCS: 90870; J0330; J3360; J7040

== ENCOUNTER 2020-02-29 06:07 | Outpatient (RCR) | payer MEDICARE ==
[~2020-02-29] VITALS: Ht 154.9 cm; Wt 55.8 kg
[2020-02-29] VITALS (7 sets, daily range): BP systolic 111–169; BP diastolic 54–80
[2020-02-29] MEDS ORDERED: NS 500ML ONE (06:08)
[2020-02-29] MEDS ORDERED: Succinylcholine 20mg/ml 10ml vial ONE (06:08)
[2020-02-29] MEDS ORDERED: Ketorolac 30mg Inj ONE (06:08)
[2020-02-29] MEDS ORDERED: Methohexita Syr 100mg/10ml IVP ONE (06:08)
== END 2020-03-20 | disposition home or self-care (01) ==
LOC: ECT 06:07
DX: F31.4 Bipolar disorder, current episode depressed, severe, without psychotic features (principal)
CPT/HCPCS: 90870; J0330; J1885; J3360; J7040

== ENCOUNTER 2020-03-28 05:20 | Outpatient (RCR) | payer MEDICARE ==
[2020-03-28] VITALS (7 sets, daily range): BP systolic 111–158; BP diastolic 61–83
[~2020-03-28] VITALS: Ht 154.9 cm; Wt 55.8 kg
[2020-03-28] MEDS ORDERED: Methohexita Syr 100mg/10ml IVP ONE (05:21)
[2020-03-28] MEDS ORDERED: NS 500ML ONE (05:21)
[2020-03-28] MEDS ORDERED: Succinylcholine 20mg/ml 10ml vial ONE (05:21)
[2020-03-28] MEDS ORDERED: Lidocaine 2% 100mg/5ml Carp IV PRN (09:09)
[2020-03-28] MEDS ORDERED: Atropine Sulfate 0.4mg/ml inj IVP PRN (09:09)
== END 2020-04-17 | disposition home or self-care (01) ==
LOC: ECT 05:20
DX: F31.4 Bipolar disorder, current episode depressed, severe, without psychotic features (principal)
CPT/HCPCS: 90870; J0330; J3360; J7040